=== PATIENT | male | born 1990 | race Caucasian/White ===

== ENCOUNTER 2022-04-07 07:28 | Emergency (ER) | payer SELFPAY ==
[~2022-04-07] VITALS: Ht 185.4 cm; Wt 113.6 kg
[2022-04-07] MEDS ORDERED: ACETAMINOPHEN 325 MG TABLET PO ONE (11:45)
[2022-04-07] MEDS ORDERED: HYDROCODONE/ACETAMINOPHEN 5-325 MG TABLET PO ONE (11:45)
[2022-04-07] MEDS ORDERED: LIDOCAINE 1%/EPI 1:200,000/PF 30 ML VIAL PERC ONE (13:15)
[2022-04-07 14:30] VITALS: BP 144/98
[2022-04-07] MEDS ORDERED: AMOX1TAB16 PO (14:55)
[2022-04-07] MEDS ORDERED: IBUP-2071 PO (14:55)
[2022-04-07] MEDS ORDERED: HYDR-4723 PO (14:57)
== END 2022-04-07 15:36 | disposition home or self-care (01) ==
LOC: EMS 07:33
DX: S62.326A Displaced fracture of shaft of fifth metacarpal bone, right hand, initial encounter for closed fracture (principal); S01.81XA Laceration without foreign body of other part of head, initial encounter; Y04.0XXA Assault by unarmed brawl or fight, initial encounter; Y93.89 Activity, other specified; Y92.89 Other specified places as the place of occurrence of the external cause; Y99.8 Other external cause status
CPT/HCPCS: 99284; 29515; 70486; 73130; 73562; 12011; J3490

== ENCOUNTER 2022-11-13 11:11 | Day surgery (SDC) | payer MEDICAID ==
[~2022-11-13] VITALS: Ht 182.9 cm; Wt 131.8 kg
[~2022-11-13 11:11] MED LIST: SODIUM CHLORIDE 0.9% 1,000 ML ONE
[2022-11-13] MEDS ORDERED: LIDOCAINE/PF 2% 5 ML VIAL IM ONE (11:12)
[2022-11-13] MEDS ORDERED: PROPOFOL 1% ISO-OSM 1000 MG/100 ML BOTTLE IV ONE (11:12)
[2022-11-13] MEDS ORDERED: SODIUM CHLORIDE 0.9% 1,000 ML IV ONE (12:00)
== END 2022-11-13 15:15 | disposition home or self-care (01) ==
LOC: SURGERY 11:11
PROVIDERS: ATTEND Internal Medicine Gastroenterology
DX: K62.5 Hemorrhage of anus and rectum (principal); K21.00 Gastro-esophageal reflux disease with esophagitis, without bleeding; K44.9 Diaphragmatic hernia without obstruction or gangrene; K29.70 Gastritis, unspecified, without bleeding; Z88.8 Allergy status to other drugs, medicaments and biological substances; E66.9 Obesity, unspecified; Z79.899 Other long term (current) drug therapy; Z80.0 Family history of malignant neoplasm of digestive organs; Z68.41 Body mass index [BMI] 40.0-44.9, adult
CPT/HCPCS: 45378; 43239; C1769; J3490; J2704; J7030; 88305; 88312; 88313

== ENCOUNTER 2023-02-25 03:50 | Emergency (ER) | payer MEDICAID ==
[~2023-02-25] VITALS: Ht 180.3 cm; Wt 145.0 kg
[2023-02-25 04:10] VITALS: BP 150/90; PULSE 88; RESP 17; TEMP 98.1
[2023-02-25] MEDS ORDERED: LORazepam 1 MG TABLET PO ONE (05:00)
== END 2023-02-25 05:09 | disposition home or self-care (01) ==
LOC: EMS 03:51
DX: F41.9 Anxiety disorder, unspecified (principal); F12.90 Cannabis use, unspecified, uncomplicated; Z88.8 Allergy status to other drugs, medicaments and biological substances
CPT/HCPCS: 99283

== ENCOUNTER 2023-04-16 06:58 | Emergency (ER) | payer OTHER ==
[~2023-04-16] VITALS: Ht 180.3 cm; Wt 145.0 kg
[2023-04-16 06:59] VITALS: BP 140/100; PULSE 80; RESP 18; TEMP 98.3
[2023-04-16] MEDS: KETOROLAC TROMETHAMINE 60 MG/2 ML VIAL IM ONE (07:16)
[2023-04-16] MEDS: METHOCARBAMOL 500 MG TABLET PO ONE (07:16)
[2023-04-16] MEDS ORDERED: IBUP-1492 PO (07:17)
[2023-04-16] MEDS ORDERED: METH-659 PO (07:17)
[2023-04-17] MEDS ORDERED: METH-659 PO (09:45)
== END 2023-04-16 07:21 | disposition home or self-care (01) ==
LOC: EMS 06:58
DX: S39.012A Strain of muscle, fascia and tendon of lower back, initial encounter (principal); F12.90 Cannabis use, unspecified, uncomplicated; Z88.8 Allergy status to other drugs, medicaments and biological substances; X58.XXXA Exposure to other specified factors, initial encounter; Y93.89 Activity, other specified; Y92.89 Other specified places as the place of occurrence of the external cause; Y99.8 Other external cause status
CPT/HCPCS: 99283; 96372; J1885

== ENCOUNTER 2023-04-17 08:59 | Emergency (ER) | payer OTHER ==
[~2023-04-17] VITALS: Ht 182.9 cm; Wt 118.2 kg
[~2023-04-17 08:59] MED LIST changes: +IBUP-1492 PO; +METH-659 PO; -SODIUM CHLORIDE 0.9% 1,000 ML ONE
[2023-04-17 09:02] VITALS: BP 152/100; PULSE 82; RESP 16; TEMP 98.4
[2023-04-17] MEDS ORDERED: METHOCARBAMOL 500 MG TABLET PO ONE (09:45)
[2023-04-17] MEDS ORDERED: KETOROLAC TROMETHAMINE 60 MG/2 ML VIAL IM ONE (09:45)
[2023-04-17] MEDS ORDERED: METH-659 PO (09:45)
== END 2023-04-17 10:43 | disposition home or self-care (01) ==
LOC: EMS 09:01
DX: S39.012A Strain of muscle, fascia and tendon of lower back, initial encounter (principal); F12.90 Cannabis use, unspecified, uncomplicated; Z88.8 Allergy status to other drugs, medicaments and biological substances; X58.XXXA Exposure to other specified factors, initial encounter; Y93.89 Activity, other specified; Y92.89 Other specified places as the place of occurrence of the external cause; Y99.8 Other external cause status
CPT/HCPCS: 99283; 96372; J1885

== ENCOUNTER → 2023-10-26 | Emergency (ER) | payer OTHER | END | disposition still patient (30) | LOC: EMS 23:13 | DX: R11.10 Vomiting, unspecified (principal); Z53.21 Procedure and treatment not carried out due to patient leaving prior to being seen by health care provider ==

== ENCOUNTER 2025-02-27 11:40 | Emergency (ER) | payer OTHER ==
[~2025-02-27] VITALS: Ht 182.9 cm; Wt 120.0 kg
[2025-02-27 11:51] VITALS: TEMP 98.8
[2025-02-27] MEDS: ACETAMINOPHEN 325 MG TABLET PO ONE (12:24)
[2025-02-27 13:39] VITALS: BP 145/99; PULSE 60; RESP 18; O2SAT 100
== END 2025-02-27 13:50 | disposition home or self-care (01) ==
LOC: EMS 11:48
DX: S63.501A Unspecified sprain of right wrist, initial encounter (principal); F12.90 Cannabis use, unspecified, uncomplicated; Z79.1 Long term (current) use of non-steroidal anti-inflammatories (NSAID); Z88.6 Allergy status to analgesic agent; Z79.899 Other long term (current) drug therapy; V43.52XA Car driver injured in collision with other type car in traffic accident, initial encounter; Y93.89 Activity, other specified; Y92.410 Unspecified street and highway as the place of occurrence of the external cause; Y99.8 Other external cause status
CPT/HCPCS: 99284; 73090-TC; 73110-TC; Z7502; Z7610